=== PATIENT | female | born 1930 | race Two or more races ===

== ENCOUNTER 2017-08-26 11:41 | Outpatient (CLI) | payer OTHER ==
[~2017-08-26 11:41] MED LIST: MONTELUKAST PO; NABUMETONE500 MG PO; PERCOCET 5/3251 TAB PO; SINGULAIR 10MG10 MG PO
== END 2017-08-26 13:38 | disposition home or self-care (01) ==
LOC: MRI 11:41
DX: H81.393 Other peripheral vertigo, bilateral (principal); H91.93 Unspecified hearing loss, bilateral
CPT/HCPCS: 70553; A9579

== ENCOUNTER 2017-11-10 10:10 | Outpatient (CLI) | payer OTHER | END 2017-11-10 15:59 | disposition home or self-care (01) | LOC: MAMO-SONO 10:10 | DX: Z12.31 Encounter for screening mammogram for malignant neoplasm of breast (principal); Z87.898 Personal history of other specified conditions; E84.9 Cystic fibrosis, unspecified ==

== ENCOUNTER 2017-11-21 12:29 | Outpatient (CLI) | payer OTHER | END 2017-11-21 12:34 | disposition home or self-care (01) | LOC: LAB 12:29 | DX: E03.8 Other specified hypothyroidism (principal); E78.4 Other hyperlipidemia; R10.84 Generalized abdominal pain; K85.90 Acute pancreatitis without necrosis or infection, unspecified ==

== ENCOUNTER 2017-11-22 10:33 | Outpatient (CLI) | payer OTHER | END 2017-11-22 11:00 | disposition home or self-care (01) | LOC: NUCLEAR 10:33 | DX: M81.0 Age-related osteoporosis without current pathological fracture (principal) ==

== ENCOUNTER 2017-12-21 10:27 | Outpatient (CLI) | payer OTHER | END 2017-12-21 10:46 | disposition home or self-care (01) | LOC: MRI 10:27 | DX: M19.90 Unspecified osteoarthritis, unspecified site (principal); I96 Gangrene, not elsewhere classified; M81.0 Age-related osteoporosis without current pathological fracture | CPT/HCPCS: 73722; A9579 ==

== ENCOUNTER 2018-05-20 08:03 | Outpatient (CLI) | payer OTHER | END 2018-05-20 08:31 | disposition home or self-care (01) | LOC: RAD 08:03 | DX: J30.1 Allergic rhinitis due to pollen (principal); J45.21 Mild intermittent asthma with (acute) exacerbation ==

== ENCOUNTER 2018-10-18 10:15 | Outpatient (CLI) | payer OTHER | END 2018-10-18 10:17 | disposition home or self-care (01) | LOC: NUCLEAR 10:15 | DX: R20.0 Anesthesia of skin (principal); G62.89 Other specified polyneuropathies; I83.90 Asymptomatic varicose veins of unspecified lower extremity; I73.9 Peripheral vascular disease, unspecified; M79.89 Other specified soft tissue disorders ==

== ENCOUNTER 2018-10-19 07:16 | Outpatient (CLI) | payer OTHER | END 2018-10-19 07:30 | disposition home or self-care (01) | LOC: NUCLEAR 07:16 | DX: R20.0 Anesthesia of skin (principal); G62.89 Other specified polyneuropathies; I87.2 Venous insufficiency (chronic) (peripheral); I73.9 Peripheral vascular disease, unspecified; I83.90 Asymptomatic varicose veins of unspecified lower extremity; M79.89 Other specified soft tissue disorders ==

== ENCOUNTER 2019-06-01 11:06 | Outpatient (CLI) | payer OTHER | END 2019-06-01 11:35 | disposition home or self-care (01) | LOC: RAD 11:06 | DX: M54.17 Radiculopathy, lumbosacral region (principal); M47.897 Other spondylosis, lumbosacral region ==

== ENCOUNTER 2019-06-06 10:01 | Outpatient (CLI) | payer OTHER | END 2019-06-06 10:15 | disposition home or self-care (01) | LOC: RAD 10:01 | DX: M54.5 Low back pain (principal); M16.0 Bilateral primary osteoarthritis of hip | CPT/HCPCS: 72148 ==

== ENCOUNTER 2020-02-18 13:07 | Outpatient (CLI) | payer OTHER | END 2020-02-18 13:12 | disposition home or self-care (01) | LOC: NUCLEAR 13:07 | PROVIDERS: ATTEND Specialist | DX: M81.0 Age-related osteoporosis without current pathological fracture (principal) ==

== ENCOUNTER 2020-11-13 08:00 | Outpatient (CLI) | payer OTHER | END 2020-11-13 08:30 | disposition home or self-care (01) | LOC: PPH VACUNA 08:00 | DX: Z23 Encounter for immunization (principal) ==

== ENCOUNTER 2021-02-06 10:48 | Outpatient (CLI) | payer OTHER | END 2021-02-06 10:59 | disposition home or self-care (01) | LOC: RAD 10:48 | DX: M47.895 Other spondylosis, thoracolumbar region (principal) ==

== ENCOUNTER 2021-06-29 11:16 | Outpatient (CLI) | payer OTHER | END 2021-06-29 11:22 | disposition home or self-care (01) | LOC: RAD 11:16 | DX: H40.9 Unspecified glaucoma (principal); I73.9 Peripheral vascular disease, unspecified; R05.9 Cough, unspecified ==

== ENCOUNTER 2021-07-16 08:05 | Outpatient (CLI) | payer OTHER | END 2021-07-16 08:06 | disposition home or self-care (01) | LOC: TOM 08:05 | DX: H40.9 Unspecified glaucoma (principal); I73.9 Peripheral vascular disease, unspecified; R05.9 Cough, unspecified; I70.0 Atherosclerosis of aorta; M06.80 Other specified rheumatoid arthritis, unspecified site ==

== ENCOUNTER 2021-09-23 13:00 | Outpatient (CLI) | payer OTHER | END 2021-09-23 13:06 | disposition home or self-care (01) | LOC: SONOGRAMA 13:00 | PROVIDERS: ATTEND Internal Medicine Gastroenterology | DX: R10.9 Unspecified abdominal pain (principal) ==

== ENCOUNTER 2022-01-13 09:08 | Outpatient (CLI) | payer OTHER | END 2022-01-13 09:14 | disposition home or self-care (01) | LOC: RAD 09:08 | PROVIDERS: ATTEND Internal Medicine Cardiovascular Disease | DX: M19.90 Unspecified osteoarthritis, unspecified site (principal) ==